=== PATIENT | female | born 1965 | race Caucasian/White ===

== ENCOUNTER 2021-07-28 23:51 | Emergency (ER) | payer OTHER ==
[~2021-07-28 23:51] MED LIST: LODINE CAP 300300 MG PO
[2021-07-29 00:29] LABS: HEMOGLOBIN 13.2 gm/dl (12.3-15.3); RED BLOOD COUNT 4.04 M/UL (4.00-5.10); WHITE BLOOD COUNT 8.4 K/UL (4.5-11.0)
[2021-07-29] MEDS ORDERED: MOBIC15 MG PO (03:45)
[2021-07-29] MEDS ORDERED: ONDANSETRON ODT4 MG SL (03:45)
== END 2021-07-29 05:09 | disposition home or self-care (01) ==
LOC: ER1 23:51
PROVIDERS: Emergency Medicine
DX: K43.9 Ventral hernia without obstruction or gangrene (principal); K42.9 Umbilical hernia without obstruction or gangrene; R07.89 Other chest pain; J44.9 Chronic obstructive pulmonary disease, unspecified; I10 Essential (primary) hypertension; Z86.711 Personal history of pulmonary embolism; Z79.82 Long term (current) use of aspirin; F17.200 Nicotine dependence, unspecified, uncomplicated; Z90.49 Acquired absence of other specified parts of digestive tract
CPT/HCPCS: 80053; 82550; 82553; 83690; 83874; 84484; 85025; 93005; 99284; Q9967

== ENCOUNTER 2021-09-01 16:59 | Emergency (ER) | payer OTHER ==
[~2021-09-01 16:59] MED LIST changes: +MOBIC15 MG PO; +ONDANSETRON ODT4 MG SL
[2021-09-01 18:34] LABS: HEMOGLOBIN 15.1 gm/dl (12.3-15.3); RED BLOOD COUNT 4.6 M/UL (4.00-5.10); WHITE BLOOD COUNT 12.4 K/UL (4.5-11.0)
[2021-09-01 19:09] LABS: BUN/CREATININE RATIO 18 (0-10)
== END 2021-09-01 21:50 | disposition home or self-care (01) ==
LOC: ER1 16:59
PROVIDERS: Physician Assistant
DX: R10.11 Right upper quadrant pain (principal); R31.9 Hematuria, unspecified; Z90.710 Acquired absence of both cervix and uterus
CPT/HCPCS: 80053; 81001; 83690; 85025; 99283

== ENCOUNTER → 2022-03-21 | Outpatient (CLI) | payer OTHER | LOC: KOH-I 12:56 | DX: M79.672 Pain in left foot (principal); M25.375 Other instability, left foot; S93.102A Unspecified subluxation of left toe(s), initial encounter | CPT/HCPCS: 73630 ==

== ENCOUNTER → 2022-04-04 | Outpatient (CLI) | payer OTHER | LOC: KOH-I 03-28 16:00 | DX: S93.505A Unspecified sprain of left lesser toe(s), initial encounter (principal); S93.145A Subluxation of metatarsophalangeal joint of left lesser toe(s), initial encounter; M19.072 Primary osteoarthritis, left ankle and foot | CPT/HCPCS: 73718 ==